=== PATIENT | male | born 1955 | race Caucasian/White ===

== ENCOUNTER → 2016-06-25 | Outpatient (CLI) | payer BC | END | disposition home or self-care (01) | LOC: PCVCIMAG 14:17 | PROVIDERS: ATTEND Internal Medicine Cardiovascular Disease | DX: I25.10 Atherosclerotic heart disease of native coronary artery without angina pectoris (principal); I77.9 Disorder of arteries and arterioles, unspecified; I10 Essential (primary) hypertension; E78.00 Pure hypercholesterolemia, unspecified; I48.0 Paroxysmal atrial fibrillation; M79.602 Pain in left arm | CPT/HCPCS: 80061; 93005; 93931; G0463 ==

== ENCOUNTER → 2016-08-22 | Outpatient (CLI) | payer BC ==
--- NOTE | 2016-08-22 09:42 | PCVCIMAG ---
EXAM: BILATERAL CAROTID DUPLEX INDICATION: Carotid Occlusive Disease. FINDINGS: Doppler Measurements (centimeters per second): RIGHT: Peak CCA-109, Peak ECA-194, Diastolic ICA-62, Peak ICA-187, ICA/CCA Ratio-1.7. LEFT: Peak CCA-102, Peak ECA-97, Diastolic ICA-0, Peak ICA-0, ICA/CCA Ratio-0. RIGHT CAROTID: The carotid bulb has moderate plaque. The proximal internal carotid artery shows 60-70% stenosis. The common carotid artery shows no significant stenosis. The external carotid artery shows greater than 50% stenosis. LEFT CAROTID: The carotid bulb has extensive plaque. The proximal internal carotid artery shows chronic occlusion. The common carotid artery shows no significant stenosis. The external carotid artery shows no significant stenosis. Antegrade flow in both vertebral arteries. IMPRESSION: 60-70% stenosis of the right internal carotid artery with moderate plaque. Chronic occlusion left internal carotid artery. No change since August 2015 study. LOC:[id number]
--- NOTE | 2016-08-22 09:44 | PCVCIMAG ---
EXAM: BILATERAL RENAL ULTRASOUND AND BILATERAL RENAL DUPLEX INDICATION: Hypertension FINDINGS: Right kidney: Length measures 10.4 cm. No hydronephrosis or extensive renal scarring. Right renal duplex: Adequate technical quality. 50% proximal renal artery stenosis. The aortic to renal artery ratio is 2.3. The renal vein is patent. Left kidney: Length measures 10.6 cm. No hydronephrosis or extensive renal scarring. Left renal duplex: Adequate technical quality. No sonographic evidence of renal artery stenosis. The aortic to renal artery ratio is 1.4. The renal vein is patent. Bladder: No obvious abnormalities. IMPRESSION: 50% proximal right renal artery stenosis not felt to be flow limiting. No left renal artery stenosis. No hydronephrosis. LOC:[id number]
== END | disposition home or self-care (01) ==
LOC: PCVCIMAG 08:12
PROVIDERS: ATTEND Internal Medicine Cardiovascular Disease
DX: I65.23 Occlusion and stenosis of bilateral carotid arteries (principal); I10 Essential (primary) hypertension; I70.1 Atherosclerosis of renal artery
CPT/HCPCS: 76770; 93880; 93975

== ENCOUNTER → 2017-03-05 | Outpatient (CLI) | payer BC ==
--- NOTE | 2017-03-05 12:09 | PCVCIMAG ---
EXAM: ARTERIAL DUPLEX BOTH UPPER EXTREMITIES INDICATION: Chronic occlusion left internal carotid artery. Decreased blood pressure right arm. FINDINGS: Right arm: 80-90% stenosis proximal/mid right subclavian artery. The axillary artery and brachial arteries are patent although arterial flow is mildly blunted. IMPRESSION: 80-90% stenosis proximal/mid right subclavian artery. LOC:[id number]
--- NOTE | 2017-03-05 12:09 | PCVCIMAG ---
EXAM: BILATERAL CAROTID DUPLEX INDICATION: Carotid Occlusive Disease. FINDINGS: Doppler Measurements (centimeters per second): RIGHT: Peak CCA-120, Peak ECA-173, Diastolic ICA-61, Peak ICA-161, ICA/CCA Ratio-1.4. LEFT: Peak CCA-90, Peak ECA-100, Diastolic ICA-0, Peak ICA-0, ICA/CCA Ratio-0. RIGHT CAROTID: The carotid bulb has moderate plaque. The proximal internal carotid artery shows 60% stenosis. The common carotid artery shows no significant stenosis. The external carotid artery shows 50% stenosis. LEFT CAROTID: The carotid bulb has extensive plaque. The proximal internal carotid artery shows chronic occlusion. The common carotid artery shows no significant stenosis. The external carotid artery shows no significant stenosis. Antegrade flow in both vertebral arteries. IMPRESSION: 60% stenosis of the right internal carotid artery with moderate plaque. Chronic occlusion left internal carotid artery. No change since August 2016 study. LOC:[id number]
--- NOTE | 2017-03-05 12:30 | PCVCIMAG ---
APPROVED REPORT Exam: Stress Echocardiogram Indication: CAD s/p CABG, Chest pain , Hypertension, Parox A Fib Patient Location: Echo lab Stress Nurse: Michelle Madsen RN Status: routine Ht: 5 ft 8 in HR: 62 bpm BP: 140/78 mmHg Rhythm: NSR Procedure The patient underwent an Exercise Stress Test using the Ayaan Protocol. Blood pressure, heart rate, and EKG were monitored. An Echocardiogram was performed by electrical manufacturing technician in four stages in quad fashion. At peak stress, four selected images were obtained and placed side by side with resting images for comparison. Stress Test Details Stress Test: Exercise stress testing was performed using a Ayaan protocol. HR Resting HR: 62 bpmMax Heart Rate (APMHR): 160 bpm Max HR Achieved: 166 bpmTarget HR (85% APMHR): 136 bpm % of APMHR: 103 Recovery HR: 99 bpm HR response to stress: Normal HR response to stress BP Resting BP: 140/78 mmHg Max BP: 200/100 mmHg Recovery BP: 170/90 mmHg ECG Resting ECG: Sinus Rhythm with non-specific inferior ST abnormality Stress ECG: Sinus Rhythm ST Change: Inferior Arrhythmia: occasional PVCs Recovery ECG: Sinus Rhythm Recovery ST Change: Inferior Recovery Arrhythmia: PVCs Clinical Reason for Termination: Completed protocol Stress Symptoms: Dyspnea, chest pain that did not worsen with exertion Exercise duration: 9 min 55 sec Highest Stage Achieved: Stage 4: 4.2 mph at 16% grade. Exercise capacity: 13.1 METs Overall Exercise Capacity for Age: Good Angina Score: Non-Limiting Pre-Stress Echo The resting Echocardiogram showed normal left ventricular contractility with an estimated Ejection Fraction of about 50%. Basal inferior hypokinesis from prior history of inferior VT. Discordant distal septal motion consistent with CABG. Post-Stress Echo The stress Echocardiogram showed normal left ventricular contractility with an estimated Ejection Fraction of about 60%. Normal augmentation of wall motion in all segments on post stress images except for known wall motion abnormalities post CABG and inferior VT. Clinical No new clinical or ECG evidence for ischemia. Conclusion Clinical Response: Non-ischemic Exercise Capacity: Superior Stress ECG Response: Ischemic- hx of inferior VT Stress Echo Images: Non-ischemic The left ventricle is normal in size and wall thickness in both the rest and stress images. 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 Other Information Study Quality: Adequate <Conclusion> The left ventricle is normal in size and wall thickness in both the rest and stress images. 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
== END | disposition home or self-care (01) ==
LOC: PCVCIMAG 09:52
PROVIDERS: ATTEND Internal Medicine Cardiovascular Disease
DX: I65.23 Occlusion and stenosis of bilateral carotid arteries (principal); I10 Essential (primary) hypertension; I25.10 Atherosclerotic heart disease of native coronary artery without angina pectoris; I48.0 Paroxysmal atrial fibrillation; R07.9 Chest pain, unspecified; Z95.1 Presence of aortocoronary bypass graft
CPT/HCPCS: 93325; 93351; 93880; 93931

== ENCOUNTER → 2017-09-26 | Outpatient (CLI) | payer BC | END | disposition home or self-care (01) | LOC: PCVCIMAG 17:25 | DX: I70.8 Atherosclerosis of other arteries (principal) | CPT/HCPCS: 93931 ==

== ENCOUNTER → 2017-10-18 | Outpatient (CLI) | payer BC ==
[~2017-10-18] MED LIST: DIAZEPAM 10 MG TABLET. ONE; HEPARIN SODIUM 5,000 UNIT/ML VIAL for PCVC. ONE; IODIXANOL 270 MG/ML 100 ML VIAL. ONE; IV NORMAL SALINE 1000ML BAG 1,000 ML ONE; LIDOCAINE 1%/EPI 1:100,000 20 ML VIAL. ONE; MIDAZOLAM HCL/PF 2 MG/2 ML VIAL. ONE; VANCOMYCIN 1GM IVPB FOR OMNI 0 ML ONE; fentaNYL PF VIAL 100 MCG/2 ML VIAL ONE; hydrALAZINE 20 MG/ML VIAL. ONE
--- NOTE | 2017-10-18 10:43 | PCVCINTER ---
EXAM: 1. CERVICOEPHALIC ARCH AORTOGRAM. 2. RIGHT CAROTID ANGIOGRAPHY. 3. LEFT VERTEBROBASILAR ANGIOGRAPHY. 4. BILATERAL RENAL ANGIOGRAPHY. 5. BILATERAL ILEOFEMORAL ANGIOGRAPHY. 6. RIGHT AND LEFT SUBCLAVIAN ANGIOGRAPHY. INDICATION: Decreased pulses right arm. Duplex suggesting significant right subclavian stenosis. Carotid occlusive disease. Left subclavian steal. Hypertension. Renal atherosclerosis. PROCEDURE: Procedure and risks of the procedures listed above were discussed with the patient and consent obtained. Risks including but not limited to bleeding, infection, stroke, vascular injury, neurologic injury, embolization, allergic reactions, and contrast-induced nephropathy requiring dialysis were discussed as appropriate and consent obtained. Patient was placed on the angiography table. IV conscious sedation was used throughout procedure with appropriate monitoring from 8:45 AM through 9:45 AM. The right groin was prepped and draped in the normal sterile fashion. Ultrasound was used to interrogate the right groin and demonstrate the right common femoral artery. An ultrasound image was saved. Under ultrasound guidance a 21 gauge needle was used to gain access into the right common femoral artery and a 6F vascular sheath was placed. Catheter was placed into the ascending aorta and cervicocephalic aortic arch angiogram performed. Catheter was placed into the suprarenal abdominal aorta and abdominal aortic angiogram performed. Catheter was placed at the aortic bifurcation and bilateral iliofemoral angiography performed. Catheter was placed into the right common carotid artery and right common carotid angiogram performed. Catheter was placed into the right subclavian artery and right subclavian angiography performed. Catheter was placed into the left subclavian artery and left subclavian angiography performed. Next the catheter in this position left vertebro-basilar angiogram performed. Catheter was placed into the right renal artery and right renal angiogram performed. Catheter was placed into the left renal artery and left renal angiogram performed. Catheters and wires were removed and hemostasis obtained using the FISH device. No immediate complications. FINDINGS: Cervicocephalic arch aortogram: The innominate artery is patent. The left common carotid artery and left subclavian artery origin are patent. The left vertebral artery is diminutive in size. The right vertebral artery is dominant and shows mild stenosis at its origin. Incidental note is made of the patient's known chronic occlusion of the cervical left internal carotid artery. Right subclavian angiogram: Large bulky calcified plaque at the junction of the right subclavian artery and right common carotid artery with extension into the proximal most right subclavian artery results in 80% stenosis. This is a large vessel so the residual flow lumen remains at least 2.5 mm. The mid and lateral portion of the subclavian artery are normal in size and patent. Right common carotid angiogram: This injection fills the right and left anterior and middle cerebral distributions as well as the right posterior cerebral distribution all of which are unremarkable. There is flash filling of the upper portion of the basilar artery and left posterior cerebral distribution. The cavernous and petrous carotid arteries are patent. Moderate calcific plaque proximal internal carotid artery does not cause significant stenosis. The internal carotid, external carotid, and common carotid arteries all show good patency. Left subclavian angiogram: The subclavian artery shows good patency throughout. The origin left vertebral artery is diminutive in size. Left vertebrobasilar angiogram: The lower portion of the left vertebral artery appears occluded. Cervical collaterals refill the upper left vertebral artery which is patent and ends primarily in the posterior inferior cerebellar artery. Aortogram: There are 2 right and one left renal artery. Mild plaque infrarenal abdominal aorta without significant stenosis. Right renal angiogram: There are 2 right renal arteries. There is a stent in the proximal portion of the chest. Both the stents show satisfactory patency. Left renal angiogram: Moderate plaque origin of the vessel does not cause significant stenosis. Bilateral iliofemoral angiogram: Minimal plaque right and left common iliac arteries which show good patency. Both internal iliac arteries are patent. The right and left external iliac arteries are patent. The right and left common femoral and profunda femoral arteries are patent as are the visualized portions of the upper superficial femoral arteries. IMPRESSION: Large calcific plaque origin right subclavian artery results in 80% stenosis. This is not readily amenable to percutaneous intervention. Occlusion of the cervical left vertebral artery with vertebrobasilar supply via the right posterior communicating artery and right vertebral artery. 2 previous right renal arteries have proximal stents which remain patent. Unchanged chronic occlusion left cervical internal carotid artery. The right cervical internal carotid artery maintains good patency. LOC:[id number]
== END | disposition home or self-care (01) ==
LOC: PCVCINTER 12:01
PROVIDERS: ATTEND Nuclear Medicine Nuclear Cardiology
DX: I70.1 Atherosclerosis of renal artery (principal); I65.02 Occlusion and stenosis of left vertebral artery; I65.23 Occlusion and stenosis of bilateral carotid arteries; I10 Essential (primary) hypertension; I70.8 Atherosclerosis of other arteries; I70.0 Atherosclerosis of aorta
CPT/HCPCS: 36223; 36225; 36226; 36252; 76937; 99152; 99153; C1751; C1760; C1769; C1894; J1644; J2250; J3010; J3490; J7030; Q9966; 36215; 75630; 75716; J0360; J3370

== ENCOUNTER → 2018-10-09 | Outpatient (CLI) | payer BC ==
--- NOTE | 2018-10-09 13:08 | PCVCIMAG ---
EXAM: BILATERAL CAROTID DUPLEX INDICATION: Carotid Occlusive Disease. FINDINGS: Doppler Measurements (centimeters per second): RIGHT: Peak CCA-106, Peak ECA-144, Diastolic ICA-39, Peak ICA-162, ICA/CCA Ratio-1.5. LEFT: Peak CCA-57, Peak ECA-107, Diastolic ICA-0, Peak ICA-0, ICA/CCA Ratio-0. RIGHT CAROTID: The carotid bulb has moderate plaque. The proximal internal carotid artery shows 60% stenosis. The common carotid artery shows no significant stenosis. The external carotid artery shows 40% stenosis. LEFT CAROTID: The carotid bulb has severe plaque. The proximal internal carotid artery shows complete chronic occlusion. The common carotid artery shows no significant stenosis. The external carotid artery shows no significant stenosis. Antegrade flow in both vertebral arteries. IMPRESSION: 60% stenosis of the right internal carotid artery with moderate plaque. Chronic occlusion cervical left internal carotid artery. No change since February 2017 study. LOC:[id number]
--- NOTE | 2018-10-09 13:22 | PCVCIMAG ---
EXAM: ARTERIAL DUPLEX RIGHT UPPER EXTREMITY INDICATION: Peripheral arterial disease. Arm pain. FINDINGS: Right arm: Innominate artery is patent. Increased systolic velocity 413 cm/s proximal/mid subclavian artery consistent with 80% stenosis. Mildly blunted arterial waveform in the distal subclavian, axillary, brachial, radial, and ulnar arteries without additional stenoses seen. Right arm systolic pressure 90 mmHg and left arm 118 mmHg. IMPRESSION: 80% stenosis proximal/mid right subclavian artery. No change since September 2017 study. LOC:[id number]
== END | disposition home or self-care (01) ==
LOC: PCVCIMAG 12:12
PROVIDERS: ATTEND Internal Medicine Cardiovascular Disease
DX: I65.23 Occlusion and stenosis of bilateral carotid arteries (principal); E78.5 Hyperlipidemia, unspecified; I10 Essential (primary) hypertension; M79.601 Pain in right arm; I73.9 Peripheral vascular disease, unspecified; I70.8 Atherosclerosis of other arteries; I77.1 Stricture of artery; E78.00 Pure hypercholesterolemia, unspecified; Z95.1 Presence of aortocoronary bypass graft; Z87.891 Personal history of nicotine dependence; Z88.8 Allergy status to other drugs, medicaments and biological substances
CPT/HCPCS: 93880; 93931